=== PATIENT | female | born 1960 | race African-American/Black ===

== ENCOUNTER 2017-09-20 12:20 | Emergency (ER) | payer MEDICAID ==
[~2017-09-20] VITALS: Ht 165.1 cm; Wt 143.2 kg
[~2017-09-20 12:20] MED LIST: NOCURR
[2017-09-20] MEDS ORDERED: AMLO-511 PO (12:29)
[2017-09-20 12:32] LABS: GLUCOSE,POINT OF CARE 200 MG/DL (70-110)
[2017-09-20 15:33] LABS: BASOPHILS % (AUTO) 0.4 % (0.0-2.0); EOSINOPHILS % (AUTO) 1.6 % (1.0-6.0); HEMATOCRIT 29.1 % (36-46); HEMOGLOBIN 9.2 g/dL (12.0-16.0); LYMPHOCYTES # (AUTO) 2.3 K/uL (1.0-4.8); LYMPHOCYTES % (AUTO) 27.5 % (22.0-44.0); MEAN CORPUSCULAR HEMOGLOBIN 21.6 pg (26.0-34.0); MEAN CORPUSCULAR HGB CONC 31.7 G/dL (31.0-37.0); MEAN CORPUSCULAR VOLUME 68 fL (80-100); MONOCYTES # (AUTO) 0.7 K/uL (0.1-1.0); NEUTROPHILS # (AUTO) 5.2 K/uL (1.8-7.7); NEUTROPHILS % (AUTO) 62.5 % (40.0-70.0); PLATELET COUNT (AUTO) 305 K/uL (150-450); RED BLOOD CELL COUNT(AUTO) 4.27 MIL/uL (4.00-5.20); RED CELL DISTRIBUTION WIDTH 15.3 % (11.5-14.5)
[2017-09-20 16:00] LABS: CALCIUM, TOTAL 9.1 mg/dL (8.8-10.5); CREATININE 1.4 mg/dL (0.60-1.30); POTASSIUM 4.2 mmol/L (3.5-5.1)
[2017-09-20 16:08] LABS: ALBUMIN 2.5 g/dL (3.4-5.0); BILIRUBIN,TOTAL 0.3 mg/dL (0.1-1.0); TOTAL PROTEIN, SERUM 7.3 g/dL (6.4-8.2)
[2017-09-20] MEDS ORDERED: AmLODIPine BESYLATE 5 MG TABLET PO ONE (16:30)
[2017-09-20 16:35] LABS: PLATELET MORPHOLOGY COMMENT GIANT PLTS PRESENT
[2017-09-20 16:54] LABS: APPEARANCE,URINE CLOUDY (CLEAR); BILIRUBIN,URINE NEGATIVE (NEGATIVE); GLUCOSE, URINE (UA) 250 mg/dL (NEGATIVE); KETONES,URINE NEGATIVE (NEGATIVE); LEUKOCYTE ESTERASE ,URINE NEGATIVE (NEGATIVE); NITRATE,URINE NEGATIVE (NEGATIVE); OCCULT BLOOD,URINE MODERATE (NEGATIVE); PH,URINE 5.5 (5.0-8.0); PROTEIN,URINE SEE CONFIRM (NEGATIVE); UROBILINOGEN,URINE 0.2 mg/dL (<=1.0)
[2017-09-20 17:02] LABS: BACTERIA,URINE Few /HPF (None Seen); SQUAMOUS EPITHELIAL CELL,UR Few /LPF (None Seen); SULFOSALICYLIC ACID,URINE 4+ (Negative); WBC,URINE 0-2 /HPF (0-5)
[2017-09-20] MEDS ORDERED: HydrALAZINE HCL 20 MG/ML VIAL IVP ONE (17:45)
[2017-09-20 19:17] VITALS: BP 217/124
== END 2017-09-20 19:36 | disposition home or self-care (01) ==
LOC: EMS 12:21
DX: I12.9 Hypertensive chronic kidney disease with stage 1 through stage 4 chronic kidney disease, or unspecified chronic kidney disease (principal); E11.22 Type 2 diabetes mellitus with diabetic chronic kidney disease; N18.9 Chronic kidney disease, unspecified; F41.9 Anxiety disorder, unspecified; M19.90 Unspecified osteoarthritis, unspecified site; Z82.49 Family history of ischemic heart disease and other diseases of the circulatory system; Z79.899 Other long term (current) drug therapy; Z83.3 Family history of diabetes mellitus
CPT/HCPCS: 36415; 80053; 81001; 82962; 84484; 85025; 93005; 96374; 99285; J0360

== ENCOUNTER 2021-05-12 09:12 | Emergency (ER) | payer MEDICAID ==
[~2021-05-12] VITALS: Ht 170.2 cm; Wt 116.4 kg
[~2021-05-12 09:12] MED LIST changes: +AMLO-257 PO; -NOCURR
[2021-05-12 09:56] LABS: GLUCOMETER DEV NAME(LOC) ERT.5; GLUCOSE,POINT OF CARE 142 MG/DL (70-110)
[2021-05-12 11:40] VITALS: BP 136/89
== END 2021-05-12 12:40 | disposition home or self-care (01) ==
LOC: EMS 09:12
DX: H53.8 Other visual disturbances (principal); E11.9 Type 2 diabetes mellitus without complications; I10 Essential (primary) hypertension; F41.9 Anxiety disorder, unspecified
CPT/HCPCS: 82962; 99282; 99283